=== PATIENT | female | born 1980 | race Hispanic/Latino ===

== ENCOUNTER 2016-12-20 18:39 | Outpatient (CLI) | payer OTHER ==
[~2016-12-20] VITALS: Ht 162.6 cm; Wt 77.3 kg
[2016-12-20 19:48] LABS: MCH 30.9 PG (29.0-34.0); MCHC 34.1 G/DL (30.0-36.0); MCV 90.7 FL (83-99); MEAN PLAT.VOLUME 9.7 uM^3 (9.5-12.4); PLATELET COUNT 210 K/uL (156-360); RBC DIS.WIDTH-CV 12.5 % (11.8-14.6); RBC DIS.WIDTH-SD 41.3 % (39-53); RED BLOOD COUNT 3.75 M/uL (3.80-5.20); WHITE BLOOD COUNT 9.5 K/uL (4.1-10.2)
[2016-12-20 19:57] LABS: CHLORIDE 108 mEq/L (99-109); POTASSIUM 3.7 mEq/L (3.7-5.4); SODIUM 138 mEq/L (136-147)
[2016-12-20 19:59] LABS: GLUCOSE 75 mg/dL (70-99)
[2016-12-20 20:00] LABS: ANION GAP 9 MEQ/L (2-14)
[2016-12-20 20:02] LABS: GFR ESTIMATE (CALCULATED) > 59 mL/min/
[2016-12-20 20:03] LABS: UREA NITROGEN (BUN) 8 mg/dL (9-23)
[2016-12-20 20:39] VITALS: BP 130/89
[2016-12-20 21:37] LABS: PROTHROMBIN TIME 10.9 SEC (10.2-12.9)
[2016-12-20 21:39] LABS: PTT 28.1 SEC (25-37)
[2016-12-20 22:23] LABS: FIBRINOGEN 483 mg/dL (150-450)
[2016-12-20 22:35] VITALS: BP 116/71
== END 2016-12-20 23:39 | disposition home or self-care (01) ==
LOC: EME 18:39 → LDRP-OP 18:39 → EDSTATUS 20:35 → 2WEST 20:36
PROVIDERS: Advanced Practice Midwife; Emergency Medicine
DX: Z04.1 Encounter for examination and observation following transport accident (principal); O9A.213 Injury, poisoning and certain other consequences of external causes complicating pregnancy, third trimester; Z3A.28 28 weeks gestation of pregnancy; V48.5XXA Car driver injured in noncollision transport accident in traffic accident, initial encounter; Y92.410 Unspecified street and highway as the place of occurrence of the external cause
CPT/HCPCS: 59025; 76815; 80048; 85027; 85384; 85610; 85730; 86850; 86900; 86901; 99281; 99284; G0378

== ENCOUNTER 2017-09-29 10:21 | Emergency (ER) | payer SELFPAY ==
[~2017-09-29] VITALS: Ht 160 cm; Wt 81.8 kg
[2017-09-29 11:38] LABS: HEMATOCRIT 41.6 % (36.0-46.0); HEMOGLOBIN 14.4 G/DL (11.9-15.5); MCH 29.9 PG (29.0-34.0); MCHC 34.6 G/DL (30.0-36.0); MCV 86.5 FL (83-99); PLATELET COUNT 270 K/uL (156-360); RBC DIS.WIDTH-CV 13.6 % (11.8-14.6); RED BLOOD COUNT 4.81 M/uL (3.80-5.20); WHITE BLOOD COUNT 11.1 K/uL (4.1-10.2)
[2017-09-29 11:45] LABS: ALBUMIN 4.6 g/dL (3.2-4.8); CHLORIDE 109 mEq/L (99-109); POTASSIUM 3.5 mEq/L (3.7-5.4); SODIUM 137 mEq/L (136-147)
[2017-09-29 11:48] LABS: GLUCOSE 99 mg/dL (70-99); TOTAL PROTEIN 8.1 g/dL (6.4-8.3)
[2017-09-29 11:50] LABS: TOTAL BILIRUBIN 0.6 mg/dL (0.0-1.0)
[2017-09-29 11:51] LABS: ALKALINE PHOSPHATASE 79 IU/L (3-129); CREATININE 0.8 mg/dL (0.6-1.3); GFR ESTIMATE (CALCULATED) > 59 mL/min/
[2017-09-29 11:52] LABS: UREA NITROGEN (BUN) 9 mg/dL (9-23)
[2017-09-29 11:53] LABS: AST (GOT) 21 IU/L (2-34)
[2017-09-29 11:54] LABS: ALT (GPT) 15 IU/L (3-49)
[2017-09-29 12:00] LABS: QUANTITATIVE HCG < 4.0 MIU/ML
[2017-09-29] MEDS ORDERED: ZOFRAN ODT4 MG PO (12:22)
[2017-09-29] MEDS ORDERED: ANTIVERT25 MG PO (12:22)
[2017-09-29 12:28] VITALS: BP 127/81
== END 2017-09-29 12:43 | disposition home or self-care (01) ==
LOC: EME 10:21
DX: R42 Dizziness and giddiness (principal); R11.2 Nausea with vomiting, unspecified; Z88.0 Allergy status to penicillin
CPT/HCPCS: 80053; 81003; 84702; 85027; 99281; 99285; J2405; J7030